=== PATIENT | male | born 1990 | race Caucasian/White ===

== ENCOUNTER → 2020-03-31 | Outpatient (CLI) | payer OTHER | LOC: KOH-I 12:07 | DX: M79.672 Pain in left foot (principal); M25.572 Pain in left ankle and joints of left foot | CPT/HCPCS: 73610; 73630 ==

== ENCOUNTER 2021-03-16 17:19 | Emergency (ER) | payer BC ==
[2021-03-16 20:10] LABS: HEMOGLOBIN 14.7 gm/dl (14.0-17.5); RED BLOOD COUNT 5.07 M/UL (4.20-5.50)
[2021-03-16 20:48] LABS: BUN/CREATININE RATIO 6 (0-10)
[2021-03-17] MEDS ORDERED: ONDANSETRON ODT4 MG SL (02:21)
== END 2021-03-17 02:39 | disposition home or self-care (01) ==
LOC: ER1 17:19
PROVIDERS: Physician Assistant
DX: K52.9 Noninfective gastroenteritis and colitis, unspecified (principal); R74.8 Abnormal levels of other serum enzymes; F17.200 Nicotine dependence, unspecified, uncomplicated
CPT/HCPCS: 80053; 81001; 83690; 85025; 96374; 99284; J2405; Q9967